=== PATIENT | female | born 2000 | race Caucasian/White ===

== ENCOUNTER 2024-06-07 11:18 | Day surgery (SDC) | payer BC ==
[2024-06-07] MEDS: FERRIC CARBOXYMALTOSE 750 MG in SODIUM CHLORIDE 250 ML IVPB ONE (11:45)
[2024-06-07 16:26] VITALS: TEMP 97.6
[2024-06-07 16:29] VITALS: BP 118/69; PULSE 70; RESP 16
== END 2024-06-07 12:55 | disposition home or self-care (01) ==
LOC: JONCCHEMO 11:18 → J7W 11:19 → JONCCHEMO 12:55
PROVIDERS: ATTEND Internal Medicine Hematology & Oncology
PROC: 3E033GC Introduction of Other Therapeutic Substance into Peripheral Vein, Percutaneous Approach (ICD-10-PCS; principal; 2024-06-07)
DX: D50.9 Iron deficiency anemia, unspecified (principal)
CPT/HCPCS: 96365; J1439

== ENCOUNTER 2024-06-14 11:05 | Day surgery (SDC) | payer BC ==
[2024-06-14] MEDS: FERRIC CARBOXYMALTOSE 750 MG in SODIUM CHLORIDE 250 ML IVPB ONE (11:23)
[2024-06-14 15:45] VITALS: PULSE 78; RESP 18; TEMP 98.2
[2024-06-14 15:47] VITALS: BP 105/62
== END 2024-06-14 12:25 | disposition home or self-care (01) ==
LOC: JONCCHEMO 11:05 → J7W 11:41 → JONCCHEMO 12:25
PROVIDERS: ATTEND Internal Medicine Hematology & Oncology
PROC: 3E033GC Introduction of Other Therapeutic Substance into Peripheral Vein, Percutaneous Approach (ICD-10-PCS; principal; 2024-06-14)
DX: D50.9 Iron deficiency anemia, unspecified (principal)
CPT/HCPCS: 96365; J1439